=== PATIENT | female | born 1990 | race African-American/Black ===

== ENCOUNTER 2020-11-27 01:31 | Observation (INO) | payer OTHER ==
[~2020-11-27] VITALS: Ht 152.4 cm; Wt 59.9 kg
[~2020-11-27 01:31] MED LIST: ACETAMINOPHEN-1 EAC1 PO; FLAGYL500 MG PO; IBUPROFEN 600600 M1 PO; MACROBID 100 M100 M1 PO; MIRALAX255 GM PO; NAPROSYN500 MG PO; NORCO 5-325 TA1 EACH PO; PROTONIX40 MG PO
[2020-11-27 01:35] VITALS: BP 136/94
[2020-11-27 02:11] LABS: ABSOLUTE EOSINOPHILS 0.1 thou/uL (0.0-0.7); ABSOLUTE LYMPHOCYTES 2.3 thou/uL (0.8-5.3); ABSOLUTE MONOCYTES 0.6 thou/uL (0.0-1.2); ABSOLUTE NEUTROPHILS 4.1 thou/uL (1.6-8.1); BASOPHILS 0.6 %; EOSINOPHILS 1.2 %; HEMATOCRIT 31.9 % (37.0-47.0); HEMOGLOBIN 10.4 gm/dL (12.0-15.0); MCH 22.3 pg (26.0-34.0); MCHC 32.6 g/dL (28.0-37.0); MCV 68.3 fL (80.0-100.0); MONOCYTES 8.1 %; NUCLEATED RBCS 0 /100WBC; PLATELET COUNT* 289 thou/uL (150-400); POLYS 57.1 %; RBC 4.67 mil/uL (4.20-5.00); RDW-CV 17.1 % (10.5-14.5); WBC 7.1 thou/uL (4.0-11.0)
[2020-11-27 02:12] LABS: URINE BILIRUBIN NEGATIVE (Negative); URINE BLOOD NEGATIVE (Negative); URINE CLARITY CLEAR; URINE COLOR STRAW; URINE GLUCOSE-RANDOM NEGATIVE (Negative); URINE KETONES NEGATIVE (Negative); URINE LEUKOCYTES-REFLEX NEGATIVE (Negative); URINE NITRITE-REFLEX NEGATIVE (Negative); URINE PROTEIN NEGATIVE (Negative); URINE UROBILINOGEN 0.2 E.U./dl (0.2-1.0)
[2020-11-27 02:19] LABS: AMP/METHAMP Negative (Negative); BARBITURATES Negative (Negative); BENZODIAZEPINES Negative (Negative); COCAINE Negative (Negative); METHADONE Negative (Negative); OPIATES Negative (Negative); PCP Negative (Negative); THC Negative (Negative)
[2020-11-27 02:20] LABS: CALCIUM 8.8 mg/dL (8.5-10.1); CREATININE 0.6 mg/dL (0.6-1.3); POTASSIUM 3.1 mmol/L (3.5-5.1)
[2020-11-27 02:25] LABS: ALBUMIN 3.7 g/dL (3.4-5.0); TOTAL BILIRUBIN 0.2 mg/dL (<0.1-1.0); TOTAL PROTEIN 7.7 g/dL (6.4-8.2)
[2020-11-27 06:23] LABS: ANISOCYTOSIS 1+; HYPOCHROMASIA 2+; MICROCYTES 2+; PLATELET ESTIMATE ADEQUATE
[2020-11-27 08:30] VITALS: BP 118/89
[2020-11-27 13:45] VITALS: BP 137/77
[2020-11-27 15:20] VITALS: BP 147/90
--- NOTE | 2020-11-27 15:20 | NUR ---
ER ADMIT TO RM 206 TO FLOOR VIA CART PATIENT ORIENTED TO RM AND CALL LIGHT DENIES PAIN, C/O NAUSEA DR TO BE NOTIFIED
[2020-11-27 15:23] VITALS: BP 154/96
[2020-11-27] MEDS ORDERED: ONDANSETRON HCL4 M2 PO (19:44)
--- NOTE | 2020-11-27 20:11 | NUR ---
PT DISCHARGE INSTRUCTIONS AND PRESCRIPTION SCRIPT GIVEN. VOICED NO CONCERNS/ QUESTIONS AT THIS TIME. IV AND HEART MONITOR REMOVED PRIOR TO DISCHARGE. ESCORTED OUT VIA WHEELCHAIR.
--- NOTE | 2020-11-28 13:50 | EKG ---
[place] [address] ELECTROCARDIOGRAM REPORT Name: KAYLIEALBA Room: [address]#: [id number] Admission: 11/27/20 Attend Phys: Trell Briggs Discharge: 11/27/20 Date of : 88 Date of Service: 11/27/20 0136 Report #: [id number] THIS REPORT FOR: //name// [facility] ED Test Date: 2020-11-27 Test Time: 01:36:44 Pat Name: ALBA LOTT Department: Room: [address] Gender: F [employer] Engineer: [facility] : 1990 Requested By: Shiloh Rojas Order Number: [id number] MD: Geoff Lopez Measurements Intervals [place] Rate: 115 P: 64 W[place]: 146 QRS: 55 QRSD: 70 T: 42 QT: 318 QTc: 440 Interpretive Statements Sinus tachycardia Borderline T wave abnormalities No previous ECG available for comparison Electronically Signed On 11-28-2020 13:49:53 CDT by Geoff Lopez [email or web address] <ELECTRONICALLY SIGNED> By: Geoff Lopez MD, [facility] 11/28/20 1349 0136 0136 Geoff Lopez MD, [facility] /EPI
== END 2020-11-27 20:05 | disposition home or self-care (01) ==
LOC: M.ERS 01:31 → M.TBA-ER 04:39 → M.2W 15:22
PROVIDERS: Personal Emergency Response Attendant; ADMIT Internal Medicine; ATTEND Internal Medicine
DX: R41.82 Altered mental status, unspecified (principal); Z20.822 Contact with and (suspected) exposure to COVID-19; E86.0 Dehydration; G40.909 Epilepsy, unspecified, not intractable, without status epilepticus; R51.9 Headache, unspecified; R25.1 Tremor, unspecified; Z79.899 Other long term (current) drug therapy